=== PATIENT | female | born 1980 | race Caucasian/White ===

== ENCOUNTER 2017-01-08 08:46 | Outpatient (CLI) | payer MEDICARE, OTHER ==
[2014-01-20 03:31] VITALS: BP 123/84
[2017-01-08 09:11] LABS: BASOPHILS % 0.1 (0.0-1.5); EOSINOPHILS % 1.4 % (0.0-6.8); LYMPHOCYTES # 1.6 # k/uL (0.6-4.0); MEAN CORPUSCULAR HEMOGLOBIN 32.6 pg (28.0-34.0); MONOCYTES # 0.2 # k/uL (0.0-0.9); MONOCYTES % 5.2 % (0.0-11.0); NEUTROPHILS # 2.3 # k/uL (1.4-7.7)
[2017-01-08 10:04] LABS: eGFR (African) > 60; eGFR (Non-African) > 60
== END 2017-01-08 08:47 ==
LOC: LAB 08:46
PROVIDERS: ATTEND Nurse Practitioner Psychiatric/Mental Health
DX: Z79.899 Other long term (current) drug therapy (principal)
CPT/HCPCS: 36415; 80053; 80164; 82608; 82746; 84439; 84443; 85025

== ENCOUNTER 2017-08-05 08:01 | Outpatient (CLI) | payer MEDICARE, OTHER ==
[2014-01-20 03:31] VITALS: BP 123/84
[2017-08-05 08:28] LABS: EOSINOPHILS % 4.7 % (0.0-6.8); MEAN CORPUSCULAR HEMOGLOBIN 31.2 pg (28.0-34.0); MEAN CORPUSCULAR VOLUME 93.3 fl (80.0-100.0); MONOCYTES % 5.1 % (0.0-11.0)
[2017-08-05 09:01] LABS: eGFR (African) > 60; eGFR (Non-African) > 60
[2017-08-06 09:10] LABS: APPEARANCE,URINE Clear (CLEAR); COLOR,URINE Yellow (YELLOW); OCCULT BLOOD,URINE 1+ (NEGATIVE)
[2017-08-06 09:39] LABS: AMORPHOUS SEDIMENT,UR MODERATE (NEGATIVE)
== END 2017-08-05 08:02 ==
LOC: LAB 08:01
PROVIDERS: ATTEND Family Medicine
DX: R60.9 Edema, unspecified (principal)
CPT/HCPCS: 80053; 80164; 81002; 84443; 85025

== ENCOUNTER 2017-10-08 08:50 | Outpatient (CLI) | payer MEDICARE, OTHER ==
[2014-01-20 03:31] VITALS: BP 123/84
[2017-10-08 09:21] LABS: BASOPHILS % 0.5 (0.0-1.5); EOSINOPHILS % 3.2 % (0.0-6.8); MEAN CORPUSCULAR HEMOGLOBIN 31.3 pg (28.0-34.0); MEAN CORPUSCULAR VOLUME 93.6 fl (80.0-100.0); MONOCYTES % 4.7 % (0.0-11.0); NEUTROPHILS # 2.4 # k/uL (1.4-7.7)
[2017-10-08 09:44] LABS: eGFR (African) > 60; eGFR (Non-African) > 60
[2017-10-08 20:40] LABS: VALPROIC ACID LEVEL 38.2 ug/mL (50.0-100.0)
== END 2017-10-08 08:52 ==
LOC: LAB 08:50
PROVIDERS: ATTEND Nurse Practitioner Psychiatric/Mental Health
DX: Z51.81 Encounter for therapeutic drug level monitoring (principal); Z79.899 Other long term (current) drug therapy
CPT/HCPCS: 36415; 80053; 80164; 80201; 82306; 85025

== ENCOUNTER 2018-01-07 08:46 | Outpatient (CLI) | payer MEDICARE, OTHER ==
[2014-01-20 03:31] VITALS: BP 123/84
== END 2018-01-07 08:47 ==
LOC: LAB 08:46
PROVIDERS: ATTEND Nurse Practitioner Psychiatric/Mental Health
DX: Z79.899 Other long term (current) drug therapy (principal); Z51.81 Encounter for therapeutic drug level monitoring
CPT/HCPCS: 36415; 84439; 84443

== ENCOUNTER 2018-02-17 14:31 | Outpatient (CLI) | payer MEDICARE, OTHER ==
[2014-01-20 03:31] VITALS: BP 123/84
[2018-02-17 14:58] LABS: BASOPHILS % 0.5 (0.0-1.5); EOSINOPHILS % 3.3 % (0.0-6.8); MEAN CORPUSCULAR HEMOGLOBIN 32.1 pg (28.0-34.0); MEAN CORPUSCULAR VOLUME 95.1 fl (80.0-100.0); MONOCYTES % 3.8 % (0.0-11.0); NEUTROPHILS # 3.5 # k/uL (1.4-7.7)
[2018-02-17 15:25] LABS: eGFR (African) > 60; eGFR (Non-African) > 60
== END 2018-02-17 14:33 ==
LOC: LAB 14:31
PROVIDERS: ATTEND Nurse Practitioner Family
DX: Z51.81 Encounter for therapeutic drug level monitoring (principal)
CPT/HCPCS: 36415; 80053; 85025

== ENCOUNTER 2018-04-08 08:44 | Outpatient (CLI) | payer MEDICARE, OTHER ==
[2014-01-20 03:31] VITALS: BP 123/84
== END 2018-04-08 08:46 ==
LOC: LAB 08:44
PROVIDERS: ATTEND Family Medicine
DX: Z51.81 Encounter for therapeutic drug level monitoring (principal); Z79.899 Other long term (current) drug therapy
CPT/HCPCS: 36415; 80164

== ENCOUNTER 2018-05-06 08:59 | Outpatient (CLI) | payer MEDICARE, OTHER ==
[2014-01-20 03:31] VITALS: BP 123/84
== END 2018-05-06 09:00 ==
LOC: LAB 08:59
PROVIDERS: ATTEND Nurse Practitioner Family
DX: Z51.81 Encounter for therapeutic drug level monitoring (principal); Z79.899 Other long term (current) drug therapy
CPT/HCPCS: 36415; 80164

== ENCOUNTER 2018-11-14 08:33 | Outpatient (CLI) | payer MEDICARE, OTHER ==
[2014-01-20 03:31] VITALS: BP 123/84
[2018-11-14 09:41] LABS: BASOPHILS % 0.3 (0.0-1.5); EOSINOPHILS % 2.9 % (0.0-6.8); MEAN CORPUSCULAR HEMOGLOBIN 30.7 pg (28.0-34.0); MONOCYTES % 6.5 % (0.0-11.0)
[2018-11-14 09:53] LABS: eGFR (Non-African) > 60
== END 2018-11-14 08:38 | disposition home or self-care (01) ==
LOC: LAB 08:33
PROVIDERS: ATTEND Nurse Practitioner Family
DX: Z79.899 Other long term (current) drug therapy (principal); Z51.81 Encounter for therapeutic drug level monitoring
CPT/HCPCS: 36415; 80053; 80061; 80164; 85025